=== PATIENT | female | born 1935 ===

== ENCOUNTER 2024-05-04 09:51 | Emergency (ER) | payer MEDICARE, MEDICAID, SELFPAY ==
[2024-05-04] VITALS (9 sets, daily range): BP systolic 156–210; BP diastolic 70–88; PULSE 62–81; RESP 20; TEMP 36.6; O2SAT 93–100; BMI 21.2
--- NOTE | 2024-05-04 10:36 | ED_ITS ---
HPI - Fall General Chief Complaint: Fall Stated Complaint: Fall/Head injury Time Seen by Provider: 05/04/24 10:34 Source: patient and family Mode of arrival: Ambulatory Limitations: no limitations History of Present Illness HPI Narrative: 88-year-old female with a history of hypertension, dyslipidemia on aspirin 81 mg daily, who had a trip and fall over her dog and has a left side of her head does take aspirin daily complains of headache. Patient's dog sort of jumped up and pushed her over she did hit the left side of her head has a little bit of swelling. Did not lose consciousness. States her head does hurt. Denies any neck or back pain. No chest pain or shortness of breath. No nausea or vomiting. No other GI or urinary symptoms. No incontinence. No numbness tingling or weakness of extremities. She has been up and been walking since this occurred. She does normally take her blood pressure medication in the morning but has not taken it yet. Patient denies any other injuries. No reported drug allergies. No tobacco, no regular alcohol no recreational drugs. She was accompanied by her family. Review of Systems Review of Systems ROS Unobtainable: All systems reviewed & are unremarkable except as noted in HPI and below Patient History Social History Smoking Status: Never smoker Smoking Status: Never smoker Exam Narrative Exam Narrative: GEN: Patient appears in file distress. HEAD: Left posterior scalp hematoma, no raccoon/Rodgers sign. NECK: Nontender, painless range of motion, trachea midline Negative Nexus criteria, no midline line tenderness, distracting injury, altered mental status, neuro deficit, recent EtOH. EYES: PERRLA, EOMI ENT: External inspection normal, trachea is midline, Nares are clear, no septal hematoma, no dental or oral injury, airway is normal and with normal occlusion, No bony tenderness RESP: Chest is nontender and has symmetric movement, no ecchymosis, breath sounds are normal no crackles, wheezes or rales CVS: Heart sounds are normal, no murmur noted, No JVD. ABG/GI: Nontender, soft, normal bowel sounds, no distention, no organomegaly, pelvic rock is negative NEURO: Oriented AOx3, neuro is grossly intact, sensation and motor is normal all 4 extremities moving, cranial nerves II through XII are intact, GCS is 15 PSYCH: Normal mood and affect SKIN: Intact, warm and dry, no crepitus and without decubitus BACK: No CVA tenderness, no vertebral tenderness, no step-off's, no crepitus EXT: Atraumatic, hips are nontender, no pedal edema, normal color and temperature, normal range of motion of extremities with normal tendon exam, 2+ pulses in all four extremities Initial Vital Signs Initial Vital Signs: Vital Signs Pulse Oximetry 93 05/04/24 09:[address] Head Rule Age <16 years old: No Patient on blood thinners: Yes Seizure after injury: No Exclusion: Patient meets exclusion criteria GCS < 15 at 2 hr post trauma: No Suspected open or depressed skull fracture: No Any sign of basilar skull fracture (hemotympanum, raccoon eyes, Rodgers's sign, CSF pao-/rhinorrhea): No Two or more episodes of vomiting: No Age greater or equal to 65 years: Yes Retrograde amnesia to the event greater or equal to 30 min: No Dangerous Mechanism (pedestrian vs. mv, occupant ejected from mv, fall from >3 ft or > 5 stairs): No Recommendation: Consider CT. The [place] Head CT Rule cannot rule out need for Imaging. GCS Dede coma scale eye opening: Spontaneous Emerson coma scale verbal response: Orientated Dede coma scale motor response: Obey commands Emerson coma scale total score: 15 Nexus Score for C-Spine Focal Neurologic deficit present: No Midline spinal tenderness present: No Altered level of conciousness present: No Intoxication present: No Distracting Injury Present: No Nexus Criteria for C-spine: 0 Course Orders Ordered: ED Orders 05/04/24 10:45 CT cervical spine wo con Stat CT head/brain wo con Stat Vital Signs Vital signs: Vital Signs - 8 hr 05/04/24 09:59 05/04/24 10:00 05/04/24 10:00 Temperature Pulse Rate 69 Respiratory Rate Blood Pressure 210/88 H Pulse Oximetry 93 100 Oxygen Delivery Method 05/04/24 10:04 05/04/24 10:40 05/04/24 10:41 Temperature 97.8 F Pulse Rate 66 81 Respiratory Rate 20 Blood Pressure 210/88 H 179/78 H Pulse Oximetry 100 99 Oxygen Delivery Method Room Air 05/04/24 10:41 05/04/24 11:04 05/04/24 11:04 Temperature Pulse Rate 76 62 Respiratory Rate Blood Pressure 187/77 H Pulse Oximetry 99 99 Oxygen Delivery Method 05/04/24 11:30 05/04/24 11:31 05/04/24 11:31 Temperature Pulse Rate 65 63 Respiratory Rate Blood Pressure 156/70 H Pulse Oximetry 98 97 Oxygen Delivery Method 05/04/24 12:00 05/04/24 12:00 Temperature Pulse Rate 62 Respiratory Rate Blood Pressure 159/73 H Pulse Oximetry 98 Oxygen Delivery Method MDM - Fall MDM Narrative Medical decision making narrative: 88-year-old female with mechanical ground level fall did strike her head has a small hematoma he was on aspirin daily is higher risk for head bleed based on age and aspirin so head CT and CT cervical spine were obtained. Patient has been ambulating since her fall no other acute changes prompting additional imaging or lab work at this time. Head CT shows no acute change CT cervical spine no displaced fracture or traumatic subluxation. Patient is ambulating well without any other issues she was hypertensive but has not taken her regular blood pressure medications was encouraged to take these when she returns home. She has a little bit of a headache but no other concussive symptoms. Discussed with the patient and family. Pressures improved here in the department without intervention. Patient felt appropriate for disch arge home with return precautions. Discharge Plan Departure Patient Disposition: Home Clinical Impression: Hematoma of scalp, Fall Instructions: Closed Head Injury Activity Restrictions/Additional Instructions: Follow up as needed. Your imaging today of your head and cervical spine do not show any bleed, fractures or dislocations. Your blood pressure is elevated please take your blood pressure medication when you get home. You can take Tylenol up to a 1000 mg every 6 hours as needed for headaches. Please return if you have severe headaches, sudden vision changes, persistent vomiting, new numbness tingling or weakness, new difficulties with gait or balance, new chest pain or shortness of breath or other new or concerning changes. Stand Alone Forms: Patient Portal/API/Survey
--- NOTE | 2024-05-04 10:45 | DI.CT.S_ITS ---
PROCEDURE: CT CERVICAL SPINE WO CON INDICATIONS: fall, hit head, on asa, left post scalp hematoma. no LOC TECHNIQUE: Noncontrast 3 mm thick sections acquired from the skull base to the T4 level. Sagittal and coronal reformats were then constructed. For radiation dose reduction, the following was used: automated exposure control, adjustment of mA and/or kV according to patient size. COMPARISON: None. FINDINGS: Image quality: Excellent. Bones: No fractures or dislocations. Visualized superior ribs are intact. Soft tissues: Prevertebral soft tissues are normal in thickness. No paravertebral hematomas. No apical pneumothoraces. IMPRESSION: No displaced fracture or traumatic subluxation. Approved by: Odell Whitaker M.D. on 05/04/2024 at 11:29
--- NOTE | 2024-05-04 10:45 | DI.CT.S_ITS ---
PROCEDURE: CT HEAD/BRAIN WO CON INDICATIONS: fall, hit head, on asa, left post scalp hematoma. no LOC TECHNIQUE: Noncontrast 4.5 mm thick angled axial sections acquired from the foramen magnum to the vertex, with coronal and sagittal reformats. For radiation dose reduction, the following was used: automated exposure control, adjustment of mA and/or kV according to patient size. COMPARISON: None. FINDINGS: Image quality: Diagnostic. CSF spaces: Basal cisterns are patent. No extra-axial fluid collections. The ventricles are symmetric in size and shape. Brain: No intracranial bleeds or masses. There is cerebral volume loss for age, with resultant ventricular and sulcal prominence. There are periventricular and deep white matter chronic small vessel ischemic changes. There is intracranial internal carotid artery atherosclerosis. Skull and face: Calvarium and visualized facial bones appear intact, without suspicious lesions. Sinuses: Visualized sinuses and mastoids are clear. IMPRESSION: No acute intracranial pathology. Approved by: Odell Whitaker M.D. on 05/04/2024 at 11:30
== END 2024-05-04 12:11 | disposition home or self-care (01) ==
PROVIDERS: Emergency Provider Emergency Medicine
DX: S00.03XA Contusion of scalp, initial encounter (principal); W01.0XXA Fall on same level from slipping, tripping and stumbling without subsequent striking against object, initial encounter; Z79.82 Long term (current) use of aspirin
CPT/HCPCS: 70450; 72125; 99281; 99284